=== PATIENT | female | born 1950 | race Caucasian/White ===

== ENCOUNTER 2023-07-18 09:22 | Day surgery (SDC) | payer MEDICARE, OTHER ==
[2023-07-18] MEDS ORDERED: Lactated Ringers 1,000 ML IV SCH (10:00)
[2023-07-18] MEDS ORDERED: Propofol 200 MG/20 ML SDV ONE ×2 (10:01→12:10)
[2023-07-18] MEDS ORDERED: fentaNYL 50 MCG/ML SDV ONE (10:01)
== END 2023-07-18 13:48 | disposition home or self-care (01) ==
LOC: JP.SDS 09:22
PROVIDERS: ATTEND Student in an Organized Health Care Education/Training Program
DX: Z12.11 Encounter for screening for malignant neoplasm of colon (principal); D12.0 Benign neoplasm of cecum; D12.3 Benign neoplasm of transverse colon; Q43.8 Other specified congenital malformations of intestine; E03.9 Hypothyroidism, unspecified; I34.1 Nonrheumatic mitral (valve) prolapse; I49.3 Ventricular premature depolarization; Z80.0 Family history of malignant neoplasm of digestive organs; Z88.8 Allergy status to other drugs, medicaments and biological substances
CPT/HCPCS: 45380; 45385; J2704; J3010; J7120

== ENCOUNTER 2025-07-16 06:23 | Day surgery (SDC) | payer MEDICARE, OTHER ==
[2025-07-16] MEDS ORDERED: Propofol 200 MG/20 ML SDV ONE ×2 (06:58→07:52)
[2025-07-16] MEDS ORDERED: fentaNYL 50 MCG/ML SDV ONE (06:58)
[2025-07-16] MEDS: Lactated Ringers 1,000 ML IV SCH (07:16)
== END 2025-07-16 09:00 | disposition home or self-care (01) ==
LOC: JP.SDS 06:23
PROVIDERS: ATTEND Surgery
DX: Z12.11 Encounter for screening for malignant neoplasm of colon (principal); D12.0 Benign neoplasm of cecum; K63.5 Polyp of colon; K64.4 Residual hemorrhoidal skin tags; I10 Essential (primary) hypertension; E03.9 Hypothyroidism, unspecified; Z88.8 Allergy status to other drugs, medicaments and biological substances; Z79.899 Other long term (current) drug therapy; Z79.890 Hormone replacement therapy; Z85.038 Personal history of other malignant neoplasm of large intestine
CPT/HCPCS: 00811; 45380; 45385; 88305; J2704; J3010; J7120